=== PATIENT | female | born 1990 | race Caucasian/White ===

== ENCOUNTER 2016-07-17 04:25 | Emergency (ER) | payer MEDICAID ==
[2016-07-17] MEDS ORDERED: Acetaminophen-Codeine 300-30mg TAB PO STA (05:05)
[2016-07-17] MEDS ORDERED: ACETAMINOPHEN TAB 325 MG TAB PO STA (05:05)
[2016-07-17] MEDS ORDERED: IBUPROFEN 800 MG TAB PO STA (05:05)
--- NOTE | 2016-07-17 05:07 | ED ---
General Adult HPI - General Chief complaint: Fever Stated complaint: fever Time Seen by Provider: 07/17/16 04:50 Source: patient, RN notes reviewed, old records reviewed Mode of arrival: ambulatory Limitations: no limitations - History of Present Illness Initial comments: This is a 25-year-old female here for evaluation to the ER for evaluation of fever. Patient presents today for evaluation of ear cough and congestion, chest pain, sore throat. Patient has no signs of medical history, patient does work in the hospital so multiple sick contacts. No travel history. No bowel pain no nausea vomiting or diarrhea. Patient's fever started yesterday but worsening today, 103 on arrival to emergency room. Patient has taken no modifying factors or fever, did take some Tylenol flu last night before bed - Related Data Home Medications Medication Instructions Recorded Confirmed Dextroamphetamine/Amphetamine 30 mg PO QAM 06/16/15 07/17/16 [Adderall Xr] Previous Rx's Medication Instructions Recorded Acetaminophen with Codeine 1 tab PO Q4H PRN #20 tab 07/17/16 [Tylenol w/codeine #3] Ibuprofen [Motrin] 800 mg PO Q6HR PRN #60 tab 07/17/16 Oseltamivir [Tamiflu] 75 mg PO Q12HR #14 cap 07/17/16 Allergies Allergy/AdvReac Type Severity Reaction Status Date / Time No Known Allergies Allergy Verified 07/17/16 04:31 Review of Systems ROS Statement: Those systems with pertinent positive or pertinent negative responses have been documented in the HPI. ROS Other: All systems not noted in ROS Statement are negative. Past Medical History Additional Past Medical History / Comment(s): migraine History of Any Multi-Drug Resistant Organisms: None Reported Past Surgical History: Section Past Psychological History: ADD/ADHD Smoking Status: Never smoker Past Alcohol Use History: Occasional Past Drug Use History: None Reported General Exam Limitations: no limitations General appearance: alert, in no apparent distress Head exam: Present: atraumatic, normocephalic, normal inspection Eye exam: Present: normal appearance, PERRL, EOMI. Absent: scleral icterus, conjunctival injection, periorbital swelling ENT exam: Present: normal exam, mucous membranes moist Neck exam: Present: normal inspection. Absent: tenderness, meningismus, lymphadenopathy Respiratory exam: Present: normal lung sounds bilaterally. Absent: respiratory distress, wheezes, rales, rhonchi, stridor Cardiovascular Exam: Present: normal rhythm, tachycardia, normal heart sounds. Absent: systolic murmur, diastolic murmur, rubs, gallop, clicks GI/Abdominal exam: Present: soft, normal bowel sounds. Absent: distended, tenderness, guarding, rebound, rigid Extremities exam: Present: normal inspection, full ROM, normal capillary refill. Absent: tenderness, pedal edema, joint swelling, calf tenderness Back exam: Present: normal inspection Neurological exam: Present: alert, oriented X3, CN II-XII intact Psychiatric exam: Present: normal affect, normal mood Skin exam: Present: warm, dry, intact, normal color. Absent: rash Course Vital Signs 07/17/16 07/17/16 04:27 05:54 Temperature 103.1 F H 101.1 F H Pulse Rate 123 H Respiratory 20 Rate Blood Pressure 129/80 O2 Sat by Pulse 97 Oximetry - Reevaluation(s) Reevaluation #1: 07/17/16 05:06 Patient symptoms much improved with fever control Medical Decision Making - Medical Decision Making 25 female year for evaluation of fever. Patient a fever sore throat, congestion , viral syndrome, flu negative, x-ray is negative for pneumonia, patient was discharged home with fever control and symptomatic therapy. - Lab Data Lab Results 07/17/16 Range/Units 05:05 Influenza Type A RNA Not Detected (Not Detectd) Influenza Type B (PCR) Detected H (Not Detectd) - Radiology Data Radiology results: report reviewed (Chest x-ray is negative for acute disease), image reviewed Disposition Clinical Impression: Fever, Viral infection, Influenza Disposition: HOME SELF-CARE Condition: Good Instructions: Fever in Adults (ED), Influenza (ED) Prescriptions: Acetaminophen with Codeine [Tylenol w/codeine #3] 1 tab PO Q4H PRN #20 tab PRN Reason: Pain Ibuprofen [Motrin] 800 mg PO Q6HR PRN #60 tab PRN Reason: Fever Oseltamivir [Tamiflu] 75 mg PO Q12HR #14 cap Referrals: David Troy MD [Primary Care Provider] - 1-2 days
[2016-07-17 05:55] VITALS: TEMP 101.1
[2016-07-17] MEDS ORDERED: OSELTAMIVIR 75 MG CAP PO STA (06:02)
[2016-07-17] MEDS ORDERED: DEXAMETHASONE SOD PHOSPHATE 10 MG/ML 1 ML VIAL IM STA (06:02)
--- NOTE | 2016-07-17 06:15 | XR ---
EXAM: XR Chest, 2 Views. CLINICAL HISTORY: Cough X2 weeks, sore throat and fever 2 days TECHNIQUE: Frontal and lateral views of the chest. COMPARISON: No relevant prior studies available. FINDINGS: Lungs: Unremarkable. No consolidation. Pleural space: Unremarkable. No pneumothorax. Heart: Unremarkable. No cardiomegaly. Mediastinum: Unremarkable. Bones/joints: Unremarkable. IMPRESSION: Normal chest x-rays.
--- NOTE | 2016-07-17 06:18 | XR ---
EXAM: XR Soft Tissue Neck. CLINICAL HISTORY: Cough X2 weeks, sore throat and fever 2 days TECHNIQUE: Frontal and lateral views of the soft tissues of the neck. COMPARISON: No relevant prior studies available. FINDINGS: Airway: Unremarkable. No abnormal narrowing. Bones/joints: Unremarkable. Soft tissues: Unremarkable. No abnormal soft tissue prominence. Normal epiglottis. IMPRESSION: Normal neck x-rays.
[2016-07-17 06:46] VITALS: BP 109/66; PULSE 95; RESP 18
== END 2016-07-17 06:45 | disposition home or self-care (01) ==
LOC: EC 04:25
DX: J11.1 Influenza due to unidentified influenza virus with other respiratory manifestations (principal); F90.9 Attention-deficit hyperactivity disorder, unspecified type; Z79.899 Other long term (current) drug therapy
CPT/HCPCS: 87502; 70360; 71020; 99284; 96372; J1100

== ENCOUNTER → 2016-12-15 | Outpatient (CLI) | payer MEDICAID ==
--- NOTE | 2016-12-15 12:53 | US ---
EXAMINATION TYPE: US OB <= 14 wk fetus DATE OF EXAM: 12/15/2016 COMPARISON: NONE CLINICAL HISTORY: Bleeding First Trimester O46.91. VAginal spotting and pelvic cramping yesterday; h igh risk per patient as delivered 2nd child at 25 weeks; EXAM PERFORMED: Transabdominal (TA) EXAM MEASUREMENTS: GESTATIONAL AGE / DATING Physician Established: not established Dates by LMP: unknown LMP First Scan: Today Dates by Current Scan for: (9 weeks/1 day) EDC: 07/19/2017 MATERNAL ANATOMY Uterus: 11.4 x 8.5 x 7.6cm Right Ovary: 2.0 x 1.4 x 1.6cm Left Ovary: 1.8 x 2.4 x 1.8cm Post CDS / Adnexa: wnl Presence of free fluid: no Presence of corpus luteal cyst: in left ovary = 1.9 x 1.5 x 1.6cm Presence of subchorionic bleed: small anechoic area at upper uterus = 2.1 x 0.4 x 1.4cm GESTATION / SURVEY CRL: 2.4cm (9 weeks/1 day) Yolk Sac (normal less than 6mm): 4.3mm Heart Rate: 175 bpm Rhythm: Normal IUP: Viable IUP Date of LMP: unknown Beta HcG (if available): NA IMPRESSION: Single, live IUP sonographically measuring 9 weeks/1 day with estimated date of delivery of 8 and HR 175bpm. Small subchorionic hemorrhage is seen measuring up to 2.1 cm, less than 25% of the g estational sac diameter.
== END | disposition home or self-care (01) ==
LOC: RADUSWWP 11:24
PROVIDERS: ATTEND Obstetrics & Gynecology
DX: O20.8 Other hemorrhage in early pregnancy (principal); Z3A.09 9 weeks gestation of pregnancy
CPT/HCPCS: 76801; 84702; 86850; 86900; 86901

== ENCOUNTER → 2017-01-06 | Outpatient (CLI) | payer MEDICAID ==
[2017-01-06 15:22] LABS: CH 28.8; CHCM 33.7; HCT 35.3 % (34.0-46.0); HDW 2.57; HGB 11.4 gm/dL (11.4-16.0); MCH 27.8 pg (25.0-35.0); MCHC 32.4 g/dL (31.0-37.0); MCV 85.8 fL (80.0-100.0); Mean Platelet Volume 8.4; RBC 4.12 m/uL (3.80-5.40); RDW 15.4 % (11.5-15.5); WBC 9.9 k/uL (3.8-10.6)
[2017-01-06 15:44] LABS: Glucose 100 mg/dL (74-99); Non-African American GFR(MDRD) >60 (>60 ml/min/1.73 sqM)
[2017-01-06 16:15] LABS: Hepatitis B Surface Ag Index 0.05
[2017-01-06 19:52] LABS: Treponemal Ab Non-Reactive (Non-Reactive)
[2017-01-07 04:57] LABS: Toxoplasma Antibody (IgG) <3.0 IU/mL (<7.2)
[2017-01-08 15:53] LABS: Mis test requested (Blood) Full Screen Part 1
== END | disposition home or self-care (01) ==
LOC: LABWHC1 14:49
PROVIDERS: ATTEND Pediatrics Neonatal-Perinatal Medicine
DX: Z34.81 Encounter for supervision of other normal pregnancy, first trimester (principal); Z3A.00 Weeks of gestation of pregnancy not specified
CPT/HCPCS: 36415; 82565; 82947; 84163; 85027; 86762; 86777; 86778; 86780; 86850; 86870; 86880; 86900; 86901; 87340

== ENCOUNTER → 2017-02-25 | Outpatient (CLI) | payer MEDICAID ==
[2017-02-27 09:23] LABS: Mis test requested (Blood) FULL INTEGRATED SCN2
== END | disposition home or self-care (01) ==
LOC: LABWHC1 08:26
PROVIDERS: ATTEND Pediatrics Neonatal-Perinatal Medicine
DX: Z34.81 Encounter for supervision of other normal pregnancy, first trimester (principal); Z3A.00 Weeks of gestation of pregnancy not specified
CPT/HCPCS: 36415; 82105; 82677; 84702; 86336

== ENCOUNTER 2017-07-13 05:40 | Inpatient (IN) | payer MEDICAID, OTHER ==
--- NOTE | 2017-07-12 07:37 | P.HPOB ---
History of Present Illness H&P Date: 07/12/17 Chief Complaint: Repeat section This patient is a pleasant 26-year-old 5 para 2 female estimated date of confinement 07/16/2017 estimated gestational age 39-4/7 weeks gestation who presents to labor and delivery for elective repeat section. Patient's history is such that she had a delivery at 27 weeks with her second secondary to premature rupture membranes. Patient had 2 previous sections. This patient was referred to maternal- medicine has been watched closely with cervical length measurements and progesterone injections. She's done very well. She now presents for repeat section at term. Review of Systems Gastrointestinal: Reports heartburn Genitourinary: Reports Menstruation: Reports amenorrhea Past Medical History Additional Past Medical History / Comment(s): hx migraines, past hx elevated cholesterol-control with diet, anemia with previous . Patient's obstetrical history is as follows: Her first she had an elective , her second she had a section at term for a 9 lbs. 4 oz. baby boy, her third she had an elective , her fourth she had premature rupture membranes at 25 weeks with delivery by section at 27 weeks. History of Any Multi-Drug Resistant Organisms: None Reported Past Surgical History: Section Additional Past Surgical History / Comment(s): C/S x2, D&C 2. Past Anesthesia/Blood Transfusion Reactions: No Reported Reaction Past Psychological History: No Psychological Hx Reported Smoking Status: Never smoker Past Alcohol Use History: None Reported Past Drug Use History: None Reported - Past Family History Mother Family Medical History: No Reported History Medications and Allergies Home Medications Medication Instructions Recorded Confirmed Type Pnv No.95/Ferrous Fum/Folic AC 1 each PO DAILY 07/09/17 07/09/17 History [ Multivitamin Tablet] Allergies Allergy/AdvReac Type Severity Reaction Status Date / Time No Known Allergies Allergy Verified 07/09/17 14:43 Exam - OBG Physical Exam Abdomen: bowel sounds normal, no diffuse tenderness, no bruit present, no guarding noted, no hepatomegaly, no splenomegaly, no mass Vulva: both: normal Vagina: normal moisture, no discharge Cervix: no lesion (Cervix in the office is closed.), no discharge Uterus: enlarged (Fundal height is 40 cm.) Results blood work shows she is O negative (receive RhoGAM on May 06), rubella immune, RPR nonreactive, hepatitis B negative, Glucola was normal, group B strep was negative, ultrasounds have been normal. Assessment and Plan Assessment: This is a pleasant 26-year-old 5 para 2 female 39-4/7 weeks gestation who is admitted to labor and delivery for elective repeat section. Plan is repeat low transverse section and RhoGAM administration if necessary. Patient does understand the surgery and risks including risks of infection, bleeding, possible injury bowel, bladder, vessels, and/or other organs. Patient understands risk of DVT and pulmonary embolism. All the patient's questions are answered and a written consent is obtained. (1) Third trimester Status: Acute Code(s): Z34.93 - ENCNTR FOR SUPRVSN OF NORMAL PREG, UNSP, THIRD TRIMESTER SNOMED Code(s): 48909387 (2) Previous section Status: Acute Code(s): Z98.891 - HISTORY OF UTERINE SCAR FROM PREVIOUS SURGERY SNOMED Code(s): 210043499 (3) Rh negative status during Status: Chronic Code(s): O09.899 - SUPERVISION OF OTHER HIGH RISK PREGNANCIES , UNSP TRIMESTER; Z67.91 - UNSPECIFIED BLOOD TYPE, RH NEGATIVE SNOMED Code(s) : 447550050
[2017-07-13] MEDS ORDERED: LACTATED RINGERS 1,000 ML IV ONE (05:48)
[2017-07-13] MEDS ORDERED: CITRIC ACID-SODIUM CITRATE 15 ML CUP PO ONE (05:48)
[2017-07-13] MEDS ORDERED: LACTATED RINGERS 1,000 ML IV SCH (05:48)
[2017-07-13 06:03] VITALS: BMI 37.8
[2017-07-13 06:22] LABS: Basophils % (A) 0 %; Eosinophils # (A) 0.1 k/uL (0-0.7); Eosinophils % (A) 1 %; HCT 33.2 % (34.0-46.0); HGB 10.4 gm/dL (11.4-16.0); Hypochromasia Slight; Lymphocytes # (A) 1.9 k/uL (1.0-4.8); Lymphocytes % (A) 20 %; MCH 26.1 pg (25.0-35.0); MCHC 31.2 g/dL (31.0-37.0); MCV 83.6 fL (80.0-100.0); Mean Platelet Volume 11.1; Monocytes # (A) 0.5 k/uL (0-1.0); Monocytes % (A) 5 %; Neutrophils # (A) 6.9 k/uL (1.3-7.7); Neutrophils % (A) 73 %; Platelet Count 156 k/uL (150-450); RBC 3.97 m/uL (3.80-5.40); RDW 15.4 % (11.5-15.5); WBC 9.5 k/uL (3.8-10.6)
[2017-07-13] MEDS ORDERED: ceFAZolin IN SWFI 2 GM/20 ML SYRINGE IVP ONE (07:15)
[2017-07-13] MEDS ORDERED: NALBUPHINE 10 MG/ML AMPUL ONE (07:47)
[2017-07-13] MEDS ORDERED: OXYTOCIN 10 UNIT/ML 1 ML VIAL ONE (07:47)
[2017-07-13] MEDS ORDERED: ONDANSETRON 4 MG/2 ML VIAL ONE (07:47)
[2017-07-13] MEDS ORDERED: MORPHINE SULFATE (PF) 0.3 MG/0.3 ML SYR ONE (07:47)
[2017-07-13] MEDS ORDERED: LACTATED RINGERS 1,000 ML BAG IV ONE (07:47)
[2017-07-13] MEDS ORDERED: ePHEDrine SULFATE/0.9% NACL/PF 50 MG/5 ML SYRINGE IV ONE (07:47)
[2017-07-13] MEDS ORDERED: NALOXONE 0.4 MG/ML 1 ML VIAL IV PRN ×2 (08:26→09:10)
[2017-07-13] MEDS ORDERED: diphenhydrAMINE 50 MG/ML 1 ML VIAL IVP PRN ×2 (08:26→09:10)
[2017-07-13] MEDS ORDERED: ONDANSETRON 4 MG/2 ML VIAL IVP PRN ×2 (08:26→09:10)
[2017-07-13] MEDS ORDERED: MORPHINE SULFATE 4 MG/ML SYRINGE IVP PRN (08:26)
--- NOTE | 2017-07-13 08:32 | P.OP ---
Date of Procedure: 07/13/17 Preoperative Diagnosis: #1: 39-4/7 week . #2: Previous section 2 desires repeat. #3 : Probable early labor Postoperative Diagnosis: Same Procedure(s) Performed: Repeat low transverse section Anesthesia: spinal Surgeon: Piyush Villa Quarter Inspector #1: Linda Gustafson Estimated Blood Loss (ml): 800 Urine output (ml): 100 Pathology: other Condition: stable (Placenta) Disposition: floor Indications for Procedure: Please see dictated H&P for intimate details of this patient's admission. Brief summary is a pleasant 26-year-old 5 para 2 female 39-4/7 weeks gestation who is admitted to labor and delivery for elective repeat section. Note the patient's having regular painful contractions this morning upon arrival thought to be possibly early labor as well. Patient I discussed the surgery and risks including risks of infection, bleeding, possible injury bowel, bladder, vessels, and/or other organs. All the patient's questions are answered written consent is obtained. Operative Findings: This is a vigorous viable female Apgars are 8 and 9 delivery time is 0803 hrs. Description of Procedure: This patient has a Quiroz catheter placed to straight drain. She is subsequently taken to the operating room where she sat up and spinal anesthetic is administered without incident. With an adequate level of anesthesia she has abdominal prep and drape. Scalpels and taken the previous Pfannenstiel skin incision is incised. A second scalpel is taken down the fascia the fascia scored with a knife. Fascial incision extended bilaterally using the Coleman scissors. Fascia is then dissected off the rectus muscles sharply. Peritoneum was identified and entered sharply. Peritoneal incision extended superior and inferior without difficulty. Bladder blade is then placed. The bladder peritoneum was taken sharply off the lower uterine segment. Scalpels and taken a low transverse uterine incision is then made and there is loss of clear fluid when I enter the uterus bluntly with a hemostat. This incision extended bluntly. The 's head is then gently delivered through the incision with fundal pressure. Mouth and nares are bulb suctioned. There is no evidence of a nuchal cord. We then have deliver the anterior posterior shoulder and rest this infant's body. This is a vigorous viable female infant Apgars are 8 and 9 delivery time is 0802 hrs. After delivery of the infant the umbilical cords doubly clamped and cut infant is handed off to the nurses in attendance. Placenta is then manually extracted intact and appears to be trivascular. Cord blood was obtained for Rh status. With this done the uterus is then externalized and uterine incision demarcated with Diaz clamps. All tissue is removed. Uterine incision then closed using 0 Vicryl running locked fashion 2 layers. Excellent hemostasis is noted. Uterus tubes and ovaries appear normal for term gestation. Uterus placed back into the abdomen. Parietal peritoneum was then closed using 0 Vicryl running fashion. Rectus muscles are reapproximated in 0 Vicryl interrupted fashion. Fascial incision is then closed using 0 PDS in a running fashion. Fascial incision is intact and hemostatic. Subcutaneous tissues and closed using a 3-0 Vicryl. Skin is and closed using ander. All counts correct 3. There are no complications. and mother taken the birthing suite in satisfactory condition.
[2017-07-13] MEDS ORDERED: Rhogam IMMUNE GLOBULIN 1,500 UNIT/1 ML IM ONE (09:10)
[2017-07-13] MEDS ORDERED: ZOLPIDEM 5 MG TAB PO PRN (09:10)
[2017-07-13] MEDS ORDERED: OXYTOCIN 20 UNITS/1000 ML NS 1,000 ML IV SCH (09:10)
[2017-07-13] MEDS ORDERED: diphenhydrAMINE 25 MG CAP PO PRN (09:10)
[2017-07-13] MEDS ORDERED: SIMETHICONE 80 MG CHEWABLE PO PRN (09:10)
[2017-07-13] MEDS ORDERED: METOCLOPRAMIDE 5 MG/ML 2 ML VIAL IVP PRN (09:10)
[2017-07-13] MEDS: KETOROLAC 30 MG/ML 1 ML VIAL IVP PRN ×2 (16:58→22:58)
[2017-07-13] MEDS: SENNOSIDES-DOCUSATE SODIUM 1 EACH TAB PO SCH ×2 (20:18→21:38)
[2017-07-13] MEDS: LACTATED RINGERS 1,000 ML IV SCH (21:37)
[2017-07-14] MEDS: KETOROLAC 30 MG/ML 1 ML VIAL IVP PRN ×3 (04:59→19:50)
--- NOTE | 2017-07-14 07:19 | P.PNOBGPC ---
Subjective - Subjective Patient reports: Reports appetite normal, Reports voiding normally, Reports pain well controlled, Reports ambulating normally : doing well Objective - Vital Signs Latest vital signs: Vital Signs Temp Pulse Resp BP Pulse Ox 07/14/17 04:00 98.3 F 93 16 95/52 07/14/17 00:00 99.7 F H 84 16 103/55 07/13/17 20:00 98.3 F 75 16 96/57 98 07/13/17 17:00 98 07/13/17 16:00 98.5 F 92 16 110/71 98 07/13/17 14:00 16 07/13/17 13:26 98 07/13/17 12:00 98.4 F 67 17 108/67 07/13/17 10:30 78 17 108/72 07/13/17 10:00 78 17 129/58 07/13/17 09:30 79 17 93/54 07/13/17 09:12 80 16 120/56 98 07/13/17 09:00 80 16 119/63 98 07/13/17 08:44 73 17 117/61 98 07/13/17 08:18 97.0 F L 81 17 113/54 99 Intake and Output 07/13/17 07/14/17 07/14/17 22:59 06:59 14:59 Intake Total 600 Output Total 1550 200 Balance -1550 400 Intake: Other 600 Output: Urine 1550 200 - Exam Lungs: bilateral: normal Chest: Normal S1, Normal S2 Extremities: Present: normal Abdomen: Present: normal appearance, soft. Absent: distention, tenderness Incision: Present: normal, dry, intact Uterus: Present: normal, firm Assessment and Plan Assessment: postoperative day #1. Patient is resting without complaints. Vital signs are stable she is afebrile. Uterus is firm nontender she's having normal lochia. Incision is intact and dry. My impression is a normal post operative course. Plan is to check a CBC, encouraged patient ambulate, allow her to shower, continue routine postoperative care. (1) Third trimester Current Visit: Yes Status: Acute Code(s): Z34.93 - ENCNTR FOR SUPRVSN OF NORMAL PREG, UNSP, THIRD TRIMESTER SNOMED Code(s): 26494869 (2) Previous section Current Visit: Yes Status: Acute Code(s): Z98.891 - HISTORY OF UTERINE SCAR FROM PREVIOUS SURGERY SNOMED Code(s): 154377769 (3) Rh negative status during Current Visit: Yes Status: Chronic Code(s): O09.899 - SUPERVISION OF OTHER HIGH RISK PREGNANCIES, UNSP TRIMESTER; Z67.91 - UNSPECIFIED BLOOD TYPE, RH NEGATIVE SNOMED Code(s): 013316764
--- NOTE | 2017-07-14 07:28 | P.PN ---
Progress Note - Text Anesthesia POD 1. Patient is status post section under spinal anesthesia with intra-thecal preservative free morphine 300 g. Minimal pruritus, excellent post-op analgesia, and no headache or other complications.
[2017-07-14] MEDS: ACETAMINOPHEN TAB 325 MG TAB PO PRN ×2 (07:52→15:01)
[2017-07-14] MEDS: SENNOSIDES-DOCUSATE SODIUM 1 EACH TAB PO SCH ×2 (07:53→19:51)
[2017-07-14 08:41] LABS: Basophils % (A) 0 %; Eosinophils # (A) 0.1 k/uL (0-0.7); Eosinophils % (A) 1 %; HCT 28.9 % (34.0-46.0); HGB 9.4 gm/dL (11.4-16.0); Lymphocytes # (A) 1.4 k/uL (1.0-4.8); Lymphocytes % (A) 12 %; MCH 27.2 pg (25.0-35.0); MCHC 32.6 g/dL (31.0-37.0); MCV 83.3 fL (80.0-100.0); Mean Platelet Volume 10.6; Monocytes # (A) 0.4 k/uL (0-1.0); Monocytes % (A) 3 %; Neutrophils # (A) 9.8 k/uL (1.3-7.7); Neutrophils % (A) 83 %; Platelet Count 139 k/uL (150-450); RBC 3.47 m/uL (3.80-5.40); RDW 15.3 % (11.5-15.5); WBC 11.8 k/uL (3.8-10.6)
[2017-07-14] MEDS: HYDROcodone/APAP 7.5-325MG 1 EACH TAB PO PRN (23:00)
[2017-07-15] MEDS: IBUPROFEN 600 MG TAB PO PRN ×2 (02:06→08:56)
[2017-07-15] MEDS: HYDROcodone/APAP 7.5-325MG 1 EACH TAB PO PRN (05:05)
--- NOTE | 2017-07-15 06:16 | P.PNOBGPC ---
Subjective - Subjective Patient reports: Reports appetite normal, Reports voiding normally, Reports pain well controlled, Reports ambulating normally : doing well Objective - Vital Signs Latest vital signs: Vital Signs Temp Pulse Resp BP Pulse Ox 07/15/17 00:00 98.2 F 79 16 96/64 07/14/17 16:00 16 07/14/17 12:00 98.2 F 16 07/14/17 08:00 98.0 F 84 18 96/58 97 Intake and Output 07/14/17 07/14/17 07/15/17 14:59 22:59 06:59 Other: # Bowel Movements 1 - Exam Lungs: bilateral: normal Chest: Normal S1, Normal S2 Extremities: Present: normal Abdomen: Present: normal appearance, soft. Absent: distention, tenderness Incision: Present: normal, dry, intact Uterus: Present: normal, firm - Labs Labs: Abnormal Lab Results - Last 24 Hours (Table) 07/14/17 Range/Units 08:07 WBC 11.8 H (3.8-10.6) k/uL RBC 3.47 L (3.80-5.40) m/uL Hgb 9.4 L (11.4-16.0) gm/dL Hct 28.9 L (34.0-46.0) % Plt Count 139 L (150-450) k/uL Neutrophils # 9.8 H (1.3-7.7) k/uL Assessment and Plan Assessment: Postoperative day #2. Patient is resting without complaints and wishes to go home. Vital signs are stable she is afebrile. Uterus is firm nontender her incision is intact and dry. Patient's tolerating regular diet, ambulating, and urinating without difficulty. Patient's felt be stable for discharge home. Plan today is to continue routine postoperative care and discharge home. (1) Third trimester Current Visit: Yes Status: Acute Code(s): Z34.93 - ENCNTR FOR SUPRVSN OF NORMAL PREG, UNSP, THIRD TRIMESTER SNOMED Code(s): 01577670 (2) Previous section Current Visit: Yes Status: Acute Code(s): Z98.891 - HISTORY OF UTERINE SCAR FROM PREVIOUS SURGERY SNOMED Code(s): 172845014 (3) Rh negative status during Current Visit: Yes Status: Chronic Code(s): O09.899 - SUPERVISION OF OTHER HIGH RISK PREGNANCIES, UNSP TRIMESTER; Z67.91 - UNSPECIFIED BLOOD TYPE, RH NEGATIVE SNOMED Code(s): 434247528
--- NOTE | 2017-07-15 06:23 | P.DS ---
Providers Date of admission: 07/13/17 05:40 Expected date of discharge: 07/15/17 Attending physician: Piyush Villa Primary care physician: David Troy - Discharge Diagnosis(es) (1) Third trimester . Current Visit: Yes Status: Acute (2) Previous section Current Visit: Yes Status: Acute (3) Rh negative status during Current Visit: Yes Status: Chronic Hospital Course: Please see dictated H&P for intimate details of this patient's admission. Brief summary pleasant 26-year-old 5 para 2 female admitted to labor and delivery for elective repeat section. Patient is admitted undergoes above-named surgery for viable female . Please see dictated delivery note. day #2 patient's felt stable for discharge home follow up with me in 1 week. Procedures: Repeat low transverse section Patient Condition at Discharge: Good Plan - Discharge Summary New Discharge Prescriptions: New HYDROcodone/APAP 7.5-325MG [G[place]am 7.5-325] 1 each PO Q6H PRN #30 tab PRN Reason: Pain Ibuprofen [Motrin] 600 mg PO Q6HR PRN #40 tab PRN Reason: Mild Pain Or Fever >= 100.5 No Action Pnv No.95/Ferrous Fum/Folic AC [ Multivitamin Tablet] 1 each PO DAILY Discharge Medication List Pnv No.95/Ferrous Fum/Folic AC [ Multivitamin Tablet] 1 each PO DAILY [History] HYDROcodone/APAP 7.5-325MG [Gotham 7.5-325] 1 each PO Q6H PRN #30 tab 07/15/17 [ Rx] Ibuprofen [Motrin] 600 mg PO Q6HR PRN #40 tab 07/15/17 [Rx] Follow up Appointment(s)/Referral(s): Piyush Villa MD [STAFF PHYSICIAN] - 1 Week Patient Instructions/Handouts: (DC) Activity/Diet/Wound Care/Special Instructions: No heavy lifting or strenuous activity for 6 weeks. Please call if any fever, chills, excessive vaginal bleeding, and/or abdominal pain. No intercourse for 6 weeks. Discharge Disposition: HOME SELF-CARE
[2017-07-15] MEDS: SENNOSIDES-DOCUSATE SODIUM 1 EACH TAB PO SCH (08:56)
[2017-07-15 11:18] VITALS: BP 107/55; PULSE 80; RESP 18; TEMP 97.7
== END 2017-07-15 12:30 | disposition home or self-care (01) | DRG 766 ==
LOC: 4FBP 05:40
PROVIDERS: ADMIT Obstetrics & Gynecology; ATTEND Obstetrics & Gynecology
PROC: 3E0R3NZ Introduction of Analgesics, Hypnotics, Sedatives into Spinal Canal, Percutaneous Approach (ICD-10-PCS; 2017-07-13)
PROC: 00HU33Z Insertion of Infusion Device into Spinal Canal, Percutaneous Approach (ICD-10-PCS; 2017-07-13)
PROC: 10D00Z1 Extraction of Products of Conception, Low, Open Approach (ICD-10-PCS; principal; 2017-07-13 08:00)
DX: O34.211 Maternal care for low transverse scar from previous cesarean delivery (principal); Z37.0 Single live birth; Z3A.39 39 weeks gestation of pregnancy; Z86.69 Personal history of other diseases of the nervous system and sense organs; Z67.41 Type O blood, Rh negative; Z86.39 Personal history of other endocrine, nutritional and metabolic disease; Z87.19 Personal history of other diseases of the digestive system
CPT/HCPCS: 85025; 86850; 86900; 86901; 88307

== ENCOUNTER 2019-07-11 13:21 | Emergency (ER) | payer MEDICAID, OTHER ==
[2019-07-11 13:26] VITALS: BP 118/83; PULSE 108; RESP 18; TEMP 98.5
[2019-07-11] MEDS ORDERED: ACET/COD 300 MG/30 MG STARTER PACK 6 TAB BTL PO STA (13:41)
[2019-07-11] MEDS ORDERED: KETOROLAC 30 MG/ML 1 ML VIAL IM STA (13:41)
--- NOTE | 2019-07-11 13:48 | ED ---
General Adult HPI - General Chief complaint: Back Pain/Injury Stated complaint: shoulder pain Time Seen by Provider: 07/11/19 13:27 Source: patient, RN notes reviewed Mode of arrival: ambulatory Limitations: no limitations - History of Present Illness Initial comments: Kyle is a 28-year-old female with a history of migraines presenting to the emergency department for a chief complaint of left-sided neck pain. Patient states that 2 weeks ago she developed left-sided neck pain. States it was difficult to turn her head to the left. She was seen at another facility at that time and given an injection of Toradol. She states that this relieved her pain for about 3 days however it came back. Patient states that today it was worsened again and she has to return to work tomorrow so wanted it figured out. Patient states it is still painful to turn her head to the left. States she now has pain on the right side of the neck as well. Patient states it goes into the top of her shoulders. Patient denies any midline back pain. Denies any injuries. Denies any numbness tingling or weakness in the upper extremities. Denies headaches associated with this. Denies pain with flexion of the neck. Patient has not had any recent chiropractic adjustments. Patient has no other complaints at this time including shortness of breath, chest pain, abdominal pain, nausea or vomiting, headache, or visual changes. - Related Data Home Medications Medication Instructions Recorded Confirmed Pnv No.95/Ferrous Fum/Folic AC 1 each PO DAILY 07/09/17 07/13/17 [ Multivitamin Tablet] Previous Rx's Medication Instructions Recorded HYDROcodone/APAP 7.5-325MG [Sullivan 1 each PO Q6H PRN #30 tab 07/15/17 7.5-325] Ibuprofen [Motrin] 600 mg PO Q6HR PRN #40 tab 07/15/17 Allergies Allergy/AdvReac Type Severity Reaction Status Date / Time No Known Allergies Allergy Verified 07/11/19 13:22 Review of Systems ROS Statement: Those systems with pertinent positive or pertinent negative responses have been documented in the HPI. ROS Other: All systems not noted in ROS Statement are negative. Past Medical History Additional Past Medical History / Comment(s): migraine History of Any Multi-Drug Resistant Organisms: None Reported Past Surgical History: Section Additional Past Surgical History / Comment(s): C/S x3, D&C 2. Past Anesthesia/Blood Transfusion Reactions: No Reported Reaction Past Psychological History: ADD/ADHD Smoking Status: Never smoker Past Alcohol Use History: Occasional Past Drug Use History: None Reported - Past Family History Mother Family Medical History: No Reported History General Exam Limitations: no limitations General appearance: alert, in no apparent distress Head exam: Present: atraumatic, normocephalic, normal inspection Eye exam: Present: normal appearance, PERRL, EOMI. Absent: scleral icterus, conjunctival injection, periorbital swelling ENT exam: Present: normal exam, mucous membranes moist Neck exam: Present: normal inspection, other (Applying pressure to the insertion of Left SCM decreases patient's pain.). Absent: tenderness, meningismus, full ROM (Patient unable to turn neck to the left more than 10. She is able to fully flex the neck and turning the neck to the right.), lymphadenopathy Respiratory exam: Present: normal lung sounds bilaterally. Absent: respiratory distress, wheezes, rales, rhonchi, stridor Cardiovascular Exam: Present: regular rate, normal rhythm, normal heart sounds. 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 Sensation intact in upper extremities bilaterally. Strength 5 out of 5 bilaterally.) Course Vital Signs 07/11/19 13:22 Temperature 98.5 F Pulse Rate 108 H Respiratory 18 Rate Blood Pressure 118/83 O2 Sat by Pulse 99 Oximetry Medical Decision Making - Medical Decision Making Patient experiencing torticollis. Unable to turn head to the left. Pain is likely muscular in nature. No headache or fevers associated with this. Neurovascular status intact in upper extremities. Patient was given Toradol here in the emergency department. She will also be given Tylenol 3. I recommended she not drive or work while taking these and she is in agreement. She states [id number] medications are helping some she will take those when she returns to work tomorrow. She was also given referral to orthopedic service will return for any worsening symptoms. I discussed this case with attending who agrees with this assessment and treatment plan. Disposition Clinical Impression: Torticollis, Neck pain Disposition: HOME SELF-CARE Condition: Good Instructions (If sedation given, give patient instructions): Spasmodic Torticollis (ED) Additional Instructions: Take Tylenol [address] for [address] drive or operative machinery while taking this. Take [id number] pain medications while working. If you have worsening symptoms return to the emergency department. Otherwise follow-up with primary care in 1-2 days. You may also follow-up with orthopedics. Is patient prescribed a controlled substance at d/c from ED?: No Referrals: David Troy MD [Primary Care Provider] - 1-2 days Jorge Haas MD [Medical Doctor] - 1-2 days Time of Disposition: 13:46
== END 2019-07-11 14:05 | disposition home or self-care (01) ==
LOC: EC 13:21
DX: M43.6 Torticollis (principal)
CPT/HCPCS: 99283; 96372; J1885